=== PATIENT | male | born 1995 | race Caucasian/White ===

== ENCOUNTER 2019-06-11 19:19 | Emergency (ER) | payer OTHER ==
[~2019-06-11] VITALS: Ht 182.9 cm; Wt 89.0 kg
--- NOTE | 2019-06-11 19:43 | PHYS DOC ---
Past Medical History Attending Signature I have participated in the care of this patient and I have reviewed and agree with all pertinent clinical information above including history, exam, and recommendations. (JASMEET CAMEJO MD) General Adult EDM: Chief Complaint: NAUSEA/VOMITING/DIARRHA HPI: HPI: Patient is a 24 year old male with no significant medical problems who presents to the ED today with multiple complaints. Patient reports he was working out at the fire station, he took his pre-workout mix, proceeded to work out, he felt nauseous, he vomited once. He also developed bilateral upper abdominal pain. Rates the pain as mild and intermittent, describes the pain as cramping. Denies any fever. Denies any coughing or congestion. Denies any constipation. (RYLEE SANTIAGO APRN) Review of Systems: Review of Systems: Constitutional: Denies fever or chills. [] Eyes: Denies change in visual acuity. [] HENT: Denies nasal congestion or sore throat. [] Respiratory: Denies cough or shortness of breath. [] Cardiovascular: Denies chest pain or edema. [] GI: Reports abdominal pain, nausea vomiting, denies bloody stools or diarrhea. [] : Denies dysuria. [] Musculoskeletal: Denies back pain or joint pain. [] Integument: Denies rash. [] Neurologic: Denies headache, focal weakness or sensory changes. [] Endocrine: Denies polyuria or polydipsia. [] Lymphatic: Denies swollen glands. [] Psychiatric: Denies depression or anxiety. [] (RYLEE SANTIAGO APRN) Heart Score: HEART Score for Chest Pain: HEART Score for Chest Pain Response (Comments) Value History Slighlty/Non-Suspicious 0 ECG Normal 0 Age < 45 0 Risk Factors No Risk Factors 0 Troponin < Normal Limit 0 Total 0 Risk Factors: Risk Factors: DM, Current or recent (<one month) smoker, HTN, HLP, family history of CAD, obesity. Risk Scores: Score 0 - 3: 2.5% MACE over next 6 weeks - Discharge Home Score 4 - 6: 20.3% MACE over next 6 weeks - Admit for Clinical Observation Score 7 - 10: 72.7% MACE over next 6 weeks - Early Invasive Strategies (RYLEE SANTIAGO APRN) Current Medications: Current Medications Medications (Trade) Dose Ordered Sig/Nikia Start Time Stop Time Status Last Admin Dose Admin Famotidine (Pepcid Vial) 20 mg 1X ONCE 06/11/19 19:45 06/11/19 19:46 UNV Ondansetron HCl (Zofran) 4 mg 1X ONCE 06/11/19 19:45 06/11/19 19:46 UNV Sodium Chloride 1,000 ml @ 1,000 mls/hr 1X ONCE 06/11/19 19:45 06/11/19 20:44 UNV (RYLEE SANTIAGO APRN) Physical Exam: PE: Constitutional: Well developed, well nourished, no acute distress, non-toxic appearance. [] HENT: Normocephalic, atraumatic, bilateral external ears normal, oropharynx moist, no oral exudates, nose normal. [] Eyes: PERRLA, EOMI, conjunctiva normal, no discharge. [] Neck: Normal range of motion, no tenderness, supple, no stridor. [] Cardiovascular:Heart rate regular rhythm, no murmur [] Lungs & Thorax: Bilateral breath sounds clear to auscultation [] Abdomen: Bowel sounds normal, soft, diffuse tenderness to bilateral upper abdomen with no point tenderness to the right upper quadrant or right lower quadrant, negative Alex sign, negative psoas sign, negative obturator sign, no guarding, no rebound pain or tenderness, no masses, no pulsatile masses. [] Skin: Warm, dry, no erythema, no rash. [] Back: No tenderness, no CVA tenderness. [] Extremities: No tenderness, no cyanosis, no clubbing, ROM intact, no edema. [] Neurologic: Alert and oriented X 3, normal motor function, normal sensory function, no focal deficits noted. [] Psychologic: Affect normal, judgement normal, mood normal. [] (RYLEE SANTIAGO APRN) EKG: EKG: [] (RYLEE SANTIAGO APRN) Radiology/Procedures: Radiology/Procedures: []PROCEDURE: ACUTE ABDOMEN SERIES Acute Abdominal Series: 06/11/2019 7:35 PM Reason for study: Epigastric pain for one day. Comparison studies: None. Technique: Frontal view of the chest was obtained along with supine and upright views of the abdomen. Findings: Nonobstructive bowel gas pattern. No air fluid levels or free air. 8.5 mm calcific density in the right lower quadrant could represent appendicolith versus ingested material. The lungs are clear without acute consolidative opacity. No pleural effusion or pneumothorax. The cardiac and mediastinal contours are normal. Visualized osseous structures are intact. IMPRESSION: 1. Nonobstructed bowel gas pattern. 8.5 mm calcific density in the right lower quadrant could represent an appendicolith versus ingested opacity 2. No acute cardiopulmonary findings. Electronically signed by: Saw Baez MD (06/11/2019 7:58 PM) [facility] DICTATED and SIGNED BY: SAW BAEZ MD DATE: 06/11/191957 PROCEDURE: CT ABDOMEN PELVIS WO CONTRAST Study: CT abdomen/pelvis without intravenous contrast Indication: Abdominal pain. Comparison: None. Technique: Helical CT imaging performed of the abdomen and pelvis without the use of intravenous contrast. Sagittal and coronal reformats were obtained. One or more of the following individualized dose reduction techniques were utilized for this examination: 1. Automated exposure control 2. Adjustment of the mA and/or kV according to patient size 3. Use of iterative reconstruction technique. Findings: Inherently limited evaluation without intravenous contrast. Chest: Within normal limits. Liver: Unremarkable. Gallbladder/Biliary Tree: Unremarkable. Pancreas: Unremarkable. Spleen: Unremarkable. Adrenal Glands: Unremarkable. Kidneys/Ureters/Bladder: Faint calyceal prominence on the right more so than left. Intermittent mild ectasia of both ureters but no overt hydroureteronephrosis. No intrarenal or intraureteral nephrolithiasis. No stones seen within the urinary bladder. Bladder wall thickness is within normal limits. Reproductive Organs: Unremarkable prostate. Colon: Unremarkable. Appendix: There is an appendicolith within the base of the appendix as seen on image 29 series 4 measuring 8 mm. Distal to this the appendix measures faintly prominent in transverse dimension on image 25 series 4 at 7.5 mm and there is no air within the appendiceal lumen. No overt periappendiceal inflammatory changes. Small Bowel: Nonobstructed. Normally located ligament of Treitz. Stomach: Unremarkable. Vasculature: Unremarkable. Lymph Nodes: Unremarkable. Peritoneum and Body Wall: No free fluid or air. Bones: No acute osseous abnormality. Miscellaneous: None. Impression: 1. An 8 mm appendicolith is seen at the base of the appendix. Distally the appendix is mildly prominent in transverse dimension and there is no air within the lumen however there is no significant periappendiceal inflammation. Very mild early appendicitis is a consideration especially if there is localized tenderness. 2. Faint prominence of the calyces on the right and left but there is no hydroureteronephrosis and no nephrolithiasis to suggest this to be the source of the patient's pain. Electronically signed by: CHERISE MARTINES MD (06/11/2019 9:44 PM) [id number] DICTATED and SIGNED BY: CHERISE MARTINES MD DATE: 06/11/192143 (RYLEE SANTIAGO APRN) Course & Med Decision Making: Course & Med Decision Making Pertinent Labs and Imaging studies reviewed. (See chart for details) This is a 24-year-old male patient who presents to the ED today reporting nausea, vomiting, abdominal pain specifically on bilateral upper abdomen, symptoms began while working out. Patient is afebrile. Labs are fairly negative with exception of potassium of 3.0 which was replaced in the ED. CK is normal. Patient was given IV fluids, Pepcid and Zofran. CT of the abdomen and pelvis was noted for an 8 mm appendicolith is seen at the base of the appendix. Distally the appendix is mildly prominent in transverse dimension and there is no air within the lumen however there is no significant periappendiceal inflammation. Very mild early appendicitis is a consideration especially if there is localized tenderness. Reassessed patient several times. He has no right lower quadrant tenderness. He is still afebrile. Has not vomited in the ED. [id number] Lewis, he recommended patient to be discharged home, monitor himself for any right lower quadrant abdominal pain, fever, worsening nausea vomiting and to return to the ED follow-up with him or the PCP next week. Discharge to home (RYLEE SANTIAGO APRN) Fifi Disclaimer: Dragnatan Disclaimer: This electronic medical record was generated, in whole or in part, using a voice recognition dictation system. (RYLEE SANTIAGO APRN) Departure Departure Impression: Primary Impression: Nausea & vomiting Qualified Codes: R11.2 - Nausea with vomiting, unspecified Additional Impression: Abdominal pain Qualified Codes: R10.10 - Upper abdominal pain, unspecified Disposition: 01 HOME, SELF-CARE Condition: STABLE Referrals: MARK LEWIS MD follow up next week Patient Instructions: Abdominal Pain Additional Instructions: You were seen in the emergency room for abdominal pain with nausea vomiting. Please monitor yourself for any right lower quadrant abdominal pain, fever, worsening vomiting or nausea, if the symptoms happen come back to the ED otherwise follow-up with the provided general surgeon next week with your [facility] doctor Scripts Hydrocodone/Apap 5-325 (NORCO 5-325 TABLET) 1 Each Tablet 1 TAB PO Q6HRS, #14 TAB Prov: RYLEE SANTIAGO APRN 06/11/19 Dicyclomine Hcl (DICYCLOMINE HCL) 20 Mg Tablet 1 TAB PO TID, #30 TAB 1 Refill Prov: RYLEE SANTIAGO APRN 06/11/19 Ondansetron (ONDANSETRON ODT) 4 Mg Tab.rapdis 1 TAB PO PRN Q6-8HRS, #16 TAB Prov: RYLEE SANTIAGO APRN 06/11/19 RYLEE SANTIAGO APRN Jun 11, 2019 19:43 JASMEET CAMEJO MD Jun 12, 2019 01:38
[2019-06-11] MEDS ORDERED: FAMOTIDINE 20 MG/2 ML VIAL IVP ONE (19:45)
[2019-06-11] MEDS ORDERED: IV NORMAL SALINE 1000ML BAG 1,000 ML IV ONE (19:45)
[2019-06-11] MEDS ORDERED: ONDANSETRON PF 4 MG/2 ML VIAL. IVP ONE (19:45)
[2019-06-11 19:49] LABS: BASO # 0.1 x10^3/uL (0.0-0.2); BASO % 1 % (0-3); EOS % 0 % (0-3); HEMATOCRIT 49.6 % (39.0-53.0); HEMOGLOBIN 17.1 g/dL (13.0-17.5); LYMPH # 1.2 x10^3/uL (1.0-4.8); LYMPH % 20 % (24-48); MEAN CORPUSCULAR HEMOGLOBIN 29 pg (25-35); MEAN CORPUSCULAR HGB CONC 35 g/dL (31-37); MEAN CORPUSCULAR VOLUME 83 fL (79-100); MONO # 0.6 x10^3/uL (0.0-1.1); MONO % 9 % (0-9); NEUT # 4.4 x10^3/uL (1.8-7.7); NEUT % 70 % (31-73); PLATELET COUNT 268 x10^3/uL (140-400); RED BLOOD COUNT 5.98 x10^6/uL (4.30-5.70); RED CELL DISTRIBUTION WIDTH 12.3 % (11.5-14.5); WHITE BLOOD COUNT 6.3 x10^3/uL (4.0-11.0)
--- NOTE | 2019-06-11 20:01 | RAD ---
Acute Abdominal Series: 06/11/2019 7:35 PM Reason for study: Epigastric pain for one day. Comparison studies: None. Technique: Frontal view of the chest was obtained along with supine and upright views of the abdomen. Findings: Nonobstructive bowel gas pattern. No air fluid levels or free air. 8.5 mm calcific density in the right lower quadrant could represent appendicolith versus ingested material. The lungs are clear without acute consolidative opacity. No pleural effusion or pneumothorax. The cardiac and mediastinal contours are normal. Visualized osseous structures are intact. IMPRESSION: 1. Nonobstructed bowel gas pattern. 8.5 mm calcific density in the right lower quadrant could represent an appendicolith versus ingested opacity 2. No acute cardiopulmonary findings. Electronically signed by: June Garrido MD (06/11/2019 7:58 PM) JENNIFER
[2019-06-11] MEDS ORDERED: IOHEXOL 300 MG/ML 100ML VIAL. IV ONE (20:30)
[2019-06-11] MEDS ORDERED: CONTRAST GIVEN. MC PRN (20:30)
[2019-06-11 21:01] LABS: ALBUMIN 4.2 g/dL (3.4-5.0); ALBUMIN/GLOBULIN RATIO 1.5 (1.0-1.7)
[2019-06-11 21:02] LABS: CALCIUM 9.1 mg/dL (8.5-10.1); CREATININE 1.2 mg/dL (0.7-1.3); GFR 74.4; TOTAL BILIRUBIN 0.4 mg/dL (0.2-1.0)
[2019-06-11 21:03] LABS: MAGNESIUM 1.8 mg/dL (1.8-2.4)
[2019-06-11 21:20] LABS: BILIRUBIN,URINE NEGATIVE (NEG); CLARITY,URINE CLEAR; NITRITE,URINE NEGATIVE (NEG); PH,URINE 6.5 (<5.0-8.0); PROTEIN,URINE NEGATIVE (NEG-TRACE); UROBILINOGEN,URINE 0.2 mg/dL (0.2 mg/dL)
[2019-06-11] MEDS ORDERED: POTASSIUM CHLORIDE 20 MEQ TABLET.ER. PO ONE ×2 (21:21→22:00)
[2019-06-11 21:24] LABS: COLOR,URINE STRAW
[2019-06-11 21:27] LABS: BACTERIA,URINE 0 /HPF (0-FEW); RBC,URINE 0 /HPF (0-2); SQUAMOUS EPITHELIAL CELL,UR OCC /LPF; WBC,URINE 0 /HPF (0-4)
[2019-06-11 21:34] LABS: AMPHETAMINE/METHAMPHETAMINE NEG (NEG); BARBITURATES NEG (NEG); BENZODIAZEPINES NEG (NEG); CANNABINOIDS NEG (NEG); COCAINE NEG (NEG); METHADONE NEG (NEG); OPIATES NEG (NEG); PHENCYCLIDINE NEG (NEG)
--- NOTE | 2019-06-11 21:47 | RAD ---
Study: CT abdomen/pelvis without intravenous contrast Indication: Abdominal pain. Comparison: None. Technique: Helical CT imaging performed of the abdomen and pelvis without the use of intravenous contrast. Sagittal and coronal reformats were obtained. One or more of the following individualized dose reduction techniques were utilized for this examination: 1. Automated exposure control 2. Adjustment of the mA and/or kV according to patient size 3. Use of iterative reconstruction technique. Findings: Inherently limited evaluation without intravenous contrast. Chest: Within normal limits. Liver: Unremarkable. Gallbladder/Biliary Tree: Unremarkable. Pancreas: Unremarkable. Spleen: Unremarkable. Adrenal Glands: Unremarkable. Kidneys/Ureters/Bladder: Faint calyceal prominence on the right more so than left. Intermittent mild ectasia of both ureters but no overt hydroureteronephrosis. No intrarenal or intraureteral nephrolithiasis. No stones seen within the urinary bladder. Bladder wall thickness is within normal limits. Reproductive Organs: Unremarkable prostate. Colon: Unremarkable. Appendix: There is an appendicolith within the base of the appendix as seen on image 29 series 4 measuring 8 mm. Distal to this the appendix measures faintly prominent in transverse dimension on image 25 series 4 at 7.5 mm and there is no air within the appendiceal lumen. No overt periappendiceal inflammatory changes. Small Bowel: Nonobstructed. Normally located ligament of Treitz. Stomach: Unremarkable. Vasculature: Unremarkable. Lymph Nodes: Unremarkable. Peritoneum and Body Wall: No free fluid or air. Bones: No acute osseous abnormality. Miscellaneous: None. Impression: 1. An 8 mm appendicolith is seen at the base of the appendix. Distally the appendix is mildly prominent in transverse dimension and there is no air within the lumen however there is no significant periappendiceal inflammation. Very mild early appendicitis is a consideration especially if there is localized tenderness. 2. Faint prominence of the calyces on the right and left but there is no hydroureteronephrosis and no nephrolithiasis to suggest this to be the source of the patient's pain. Electronically signed by: CHERISE MARTINES MD (06/11/2019 9:44 PM) [id number]
[2019-06-11] MEDS ORDERED: HYDR-3164 PO (22:14)
[2019-06-11] MEDS ORDERED: DICY20TA3 PO (22:14)
[2019-06-11] MEDS ORDERED: ONDA4TAB12 PO (22:14)
[2019-06-11 22:21] VITALS: BP 150/82
--- NOTE | 2019-06-12 20:49 | EKG ---
[facility] [address] [place] [address] Test Date: 2019-06-11 Test Time: 19:32:05 Pat Name: NORA PEREZ Department: Room: Gender: M Development Chemist: : 1995 Requested By: RYLEE SANTIAGO Order Number: [id number] Reading MD: Fernando Kathleen MD Measurements Intervals [place] Rate: 92 P: 38 WY: 164 QRS: 61 QRSD: 86 T: 29 QT: 316 QTc: 395 Interpretive Statements SINUS RHYTHM BASELINE ARTIFACT Electronically Signed On 06-14-2019 9:38:51 CDT by Fernando Kathleen MD
== END 2019-06-11 22:26 | disposition home or self-care (01) ==
LOC: ER 19:19
DX: R11.2 Nausea with vomiting, unspecified (principal); R10.11 Right upper quadrant pain; R10.12 Left upper quadrant pain
CPT/HCPCS: 36415; 74022; 74176; 80053; 80307; 81001; 82553; 83690; 83735; 83880; 84443; 84484; 85025; 93005; 96361; 96374; 96375; 99285; J2405; J3490; J7030

== ENCOUNTER → 2019-06-15 | Outpatient (CLI) | payer OTHER ==
[2019-06-11 22:21] VITALS: BP 150/82
[~2019-06-15] MED LIST: CONTRAST GIVEN. MC PRN; DICY20TA3 PO; HYDR-3164 PO; IOHEXOL 240 MG/ML 50ML VIAL. PO ONE; IOHEXOL 300 MG/ML 100ML VIAL. IV ONE; ONDA4TAB12 PO
[2019-06-15 14:32] LABS: BASO % 1 % (0-3); EOS % 1 % (0-3); HEMATOCRIT 55.3 % (39.0-53.0); LYMPH # 1.1 x10^3/uL (1.0-4.8); LYMPH % 18 % (24-48); MEAN CORPUSCULAR HEMOGLOBIN 29 pg (25-35); MEAN CORPUSCULAR HGB CONC 34 g/dL (31-37); MEAN CORPUSCULAR VOLUME 84 fL (79-100); MONO # 0.6 x10^3/uL (0.0-1.1); MONO % 9 % (0-9); NEUT # 4.3 x10^3/uL (1.8-7.7); NEUT % 72 % (31-73); PLATELET COUNT 283 x10^3/uL (140-400); RED BLOOD COUNT 6.63 x10^6/uL (4.30-5.70); RED CELL DISTRIBUTION WIDTH 12.6 % (11.5-14.5)
--- NOTE | 2019-06-15 15:43 | RAD ---
EXAM: CT Abdomen and Pelvis with IV contrast INDICATION: Right lower quadrant abdominal pain for 3 days. TECHNIQUE: Multi-detector row CT images were acquired from the lung bases through the abdomen and pelvis with the use of IV contrast. Sagittal and coronal images were acquired from the transaxial data. All CT scans performed at this facility utilize dose optimization techniques as appropriate to the exam, including the following: Automated exposure control and adjustment of the mA and/or KV according to patient size (this includes techniques or standardized protocols for targeted exams where dose is indication/reason for exam). IV CONTRAST: Administered ORAL CONTRAST: Administered COMPARISON: Noncontrast abdomen pelvis CT of 06/11/2019. FINDINGS: LOWER CHEST: Unremarkable LIVER: Unremarkable BILIARY SYSTEM: Gallbladder is unremarkable. Bile ducts are not dilated. PANCREAS: Unremarkable SPLEEN: Unremarkable ADRENALS: Unremarkable KIDNEYS & URETERS: Unremarkable BLADDER: Unremarkable REPRODUCTIVE ORGANS: Unremarkable GASTROINTESTINAL: The stomach, small bowel, and colon are unremarkable. 8 mm appendicolith at the appendiceal orifice is again evident. Appendix measures 6 mm in diameter and there is no periappendiceal soft tissue stranding evident. MESENTERY/PERITONEUM/RETROPERITONEUM: Unremarkable VASCULAR: Unremarkable LYMPH NODES: No adenopathy OSSEOUS & SOFT TISSUES: Unremarkable IMPRESSION: An 8 mm appendicolith at the base of the appendix remains present without interval development of inflammatory changes suspicious for acute appendicitis. Recommend clinical correlation. FOR INTERNAL CODING PURPOSES Critical result: Findings discussed with ARIANA BOYER at 06/15/2019 3:40 PM. RESULT CODE: (C) Electronically signed by: Dimple Greene MD (06/15/2019 3:40 PM) [id number]
== END ==
LOC: CT 14:01
PROVIDERS: ATTEND Surgery
DX: K38.1 Appendicular concretions (principal)
CPT/HCPCS: 36415; 74177; 85025; Q9966; Q9967